=== PATIENT | female | born 1955 | race Caucasian/White ===

== ENCOUNTER 2022-04-25 20:10 | Emergency (ER) | payer MEDICARE ==
[~2022-04-25] VITALS: Ht 170.2 cm; Wt 72.6 kg
[2022-04-25 20:10] VITALS: BP 98/58
--- NOTE | 2022-04-25 20:10 | NUR ---
PT BIBA ALS TO BED 10. ERMD AT BEDSIDE
--- NOTE | 2022-04-25 20:20 | NUR ---
66 yo/f biba from home s/p fall while switching from poratble potty to bed, per pt R knee gave way and she fell and was unable to get up (denies head injury), per [facility] pt had near syncope episode was difficult to arouse and had no extremety pulses BP on route 83/52 and was given 1L NS captain's assistant + 3 amps of epinephrine. Pt presents AOX4, GCS 15, reports pain to BL knees from previous knee injuries and R ankle pain from fall. Pt reports she has had alot of wine the last few days, denies known LOC, chest pain, sob, fevers/chills, n/v/d or other symptoms. Pmh: htn, BL knee fractures over 1 year ago allergies: reports multiple but unable to recall
--- NOTE | 2022-04-25 20:25 | NUR ---
pt does not want pain medication, legs provided comfort w pillows.
[2022-04-25] MEDS ORDERED: NACL 0.9% 1,000 ML IV SCH (20:35)
[2022-04-25] MEDS ORDERED: cefTRIAXone 1,000 MG VIAL ONE (20:50)
[2022-04-25 21:20] LABS: BASOPHILS % (AUTO) 0.4 % (0.0-2.0); EOSINOPHILS # (AUTO) 0.1 K/uL (0-0.4); EOSINOPHILS % (AUTO) 1.4 % (0.0-4.0); HEMATOCRIT 36.1 % (36-48); HEMOGLOBIN 12.6 g/dL (12.0-16.0); LYMPHOCYTES # (AUTO) 1.9 K/uL (2.5-16.5); LYMPHOCYTES % (AUTO) 35.9 % (20.5-51.1); MEAN CORPUSCULAR HEMOGLOBIN 36 pg (27-31); MEAN CORPUSCULAR HGB CONC 35 g/dL (33-37); MEAN CORPUSCULAR VOLUME 104.4 fL (80-94); MONOCYTES # (AUTO) 0.7 K/uL (0.8-1.0); MONOCYTES % (AUTO) 12.1 % (1.7-9.3); NEUTROPHILS # (AUTO) 2.7 K/uL (1.8-7.7); NEUTROPHILS % (AUTO) 50.2 % (42.2-75.2); PLATELET COUNT (AUTO) 183 K/uL (140-450); RED BLOOD CELL COUNT(AUTO) 3.45 MIL/uL (4.20-5.40); RED CELL DISTRIBUTION WIDTH 12.7 % (11.6-13.7); WHITE BLOOD COUNT (AUTO) 5.4 K/uL (4.8-10.8)
[2022-04-25 21:50] LABS: ALBUMIN 2.4 g/dL (3.4-5.0); CARBON DIOXIDE 21.9 mmol/L (21-32); CREATININE 0.5 mg/dL (0.6-1.3); POTASSIUM 3.9 mmol/L (3.5-5.1); TOTAL BILIRUBIN 0.4 mg/dL (0.0-1.0)
[2022-04-25 22:42] LABS: APPEARANCE,URINE CLEAR (CLEAR); BILIRUBIN,URINE NEGATIVE (NEGATIVE); BLOOD, URINE NEGATIVE (NEGATIVE); COLOR,URINE YELLOW (YELLOW); LEUKOCYTE ESTERASE ,URINE NEGATIVE (NEGATIVE); NITRITE, URINE POSITIVE (NEGATIVE); UGLUCOSE NEGATIVE (NEGATIVE)
[2022-04-25 22:54] LABS: RBC,URINE 0-5 /HPF (0-5); WBC,URINE 0-5 /HPF (0-5)
--- NOTE | 2022-04-25 22:57 | NUR ---
ermd at bedside asessing pt.
[2022-04-25] MEDS ORDERED: NACL 0.9% 1,000 ML IV ONE (23:05)
--- NOTE | 2022-04-25 23:58 | NUR ---
pt appears to be resting w eyes closed in supione positiobn. breathing even and unlabored. will continue to monitor.
--- NOTE | 2022-04-26 01:24 | NUR ---
pt appears to be resting w eyes closed in supine position. breathing even and unlabored. will continue to monitor.
--- NOTE | 2022-04-26 01:24 | NUR ---
Josue gray in ED - 04/26/22 at 0151 by SHAYLEE pt appears to be resting w eyes closed in supione positiobn. breathing even and unlabored. will continue to monitor.
--- NOTE | 2022-04-26 03:05 | NUR ---
pt reports feeling anxious and shaking, pt reports normally she has her ativan 1 mg around bed time. ERMD made aware.
[2022-04-26] MEDS ORDERED: LORazepam 2 MG/ML VIAL IVP ONE (03:10)
--- NOTE | 2022-04-26 03:18 | NUR ---
Patient to be transferred to [facility]. Is being transferred due to INSURANCE REQUEST. Receiving facility has accepting physician and available space. ER physician has signed transfer form. Patient or responsible democrat has agreed to transfer and signed form. Patient belongings inventoried and will be sent with patient. Copy of nursing notes, lab reports, EKG, Physicians Orders and X-rays to be sent with patient. Report called to GABY at receiving facility. [facility] ambulance service has been called for transfer rosa castillo.
--- NOTE | 2022-04-26 03:18 | NUR ---
Note undone in EDM - 04/26/22 at 0341 by SHAYLEE Patient to be transferred to [facility]. Is being transferred due to INSURANCE REQUEST. Receiving facility has accepting physician and available space. ER physician has signed transfer form. Patient or responsible alliance party has agreed to transfer and signed form. Patient belongings inventoried and will be sent with patient. Copy of nursing notes, lab reports, EKG, Physicians Orders and X-rays to be sent with patient. Report called to GABY at receiving facility. [facility] ambulance service has been called for transfer AND IS AT BEDSIDE.
--- NOTE | 2022-04-26 04:30 | NUR ---
pt appears to be resting w eyes closed in supine position. breathing even and unlabored. will continue to monitor.
--- NOTE | 2022-04-26 05:11 | NUR ---
[facility] at bedside for pt transfer.
[2022-04-26 05:12] VITALS: BP 149/92
== END 2022-04-26 05:05 | disposition short-term general hospital (02) ==
LOC: MED 20:10
DX: I95.9 Hypotension, unspecified (principal); Z20.822 Contact with and (suspected) exposure to COVID-19; N39.0 Urinary tract infection, site not specified; E87.2 Acidosis; E87.1 Hypo-osmolality and hyponatremia; M25.471 Effusion, right ankle; W18.30XA Fall on same level, unspecified, initial encounter; Y93.89 Activity, other specified; Y92.89 Other specified places as the place of occurrence of the external cause; Y99.8 Other external cause status
CPT/HCPCS: 36415; 70450; 71045; 73562; 73610; 80053; 81001; 83605; 83880; 84484; 85025; 87040; 87086; 87426; 87804; 96361; 96365; 96375; 99285; J0696; J2060; J7030; Q0092